=== PATIENT | female | born 1940 | race African-American/Black ===

== ENCOUNTER 2020-02-28 17:42 | Inpatient (IN) | payer MEDICARE ==
[~2020-02-28] VITALS: Ht 160 cm; Wt 78.1 kg
[2020-02-28 17:44] VITALS: BP 111/53
[2020-02-28] MEDS ORDERED: ASA81BEC PO (17:52)
[2020-02-28] MEDS ORDERED: PROTONIX40 M2 PO (17:59)
[2020-02-28] MEDS ORDERED: COZAAR 25 MG TA25 M1 PO (17:59)
[2020-02-28] MEDS ORDERED: CARVEDILOL25 MG PO (17:59)
[2020-02-28] MEDS ORDERED: TYLENOL325 MG PO (18:00)
[2020-02-28] MEDS ORDERED: CRESTOR10 MG PO (18:00)
[2020-02-28] MEDS ORDERED: PROAIR HFA8.5 GM INH (18:00)
[2020-02-28 18:33] LABS: WBC 5.1 thou/uL (4.0-11.0)
[2020-02-28 18:34] LABS: HEMATOCRIT 20.1 % (37.0-47.0); HEMOGLOBIN 6.8 gm/dL (12.0-15.0); MCH 27.7 pg (26.0-34.0); MCHC 31.7 g/dL (28.0-37.0); MCV 87.4 fL (80.0-100.0); RBC 2.33 mil/uL (4.20-5.00); RDW 16.8 % (10.5-14.5)
[2020-02-28 18:46] LABS: APTT 27.7 Seconds (24.5-32.8); INR 1.1; PROTIME 11.2 Seconds (9.3-11.4)
[2020-02-28 19:07] LABS: CALCIUM 8.3 mg/dL (8.5-10.1); CREATININE 4.9 mg/dL (0.6-1.0); POTASSIUM 3.7 mmol/L (3.5-5.1)
[2020-02-28 19:14] LABS: ALBUMIN 2.2 g/dL (3.4-5.0); TOTAL BILIRUBIN 0.6 mg/dL (0.2-1.0); TOTAL PROTEIN 6.1 g/dL (6.4-8.2)
[2020-02-29 05:30] LABS: CALCIUM 8.3 mg/dL (8.5-10.1); CREATININE 5.6 mg/dL (0.6-1.0); POTASSIUM 3.8 mmol/L (3.5-5.1)
[2020-02-29 05:33] LABS: HEMATOCRIT 20.7 % (37.0-47.0); HEMOGLOBIN 6.5 gm/dL (12.0-15.0); MCH 27.7 pg (26.0-34.0); MCHC 31.6 g/dL (28.0-37.0); MCV 87.7 fL (80.0-100.0); RBC 2.36 mil/uL (4.20-5.00); RDW 16.5 % (10.5-14.5); WBC 4.4 thou/uL (4.0-11.0)
--- NOTE | 2020-02-29 09:15 | NUR ---
CONSENT BY TELEPHONE BY AUDREY PARK [phone] FOR INSERTION OF DIALYSIS CATHETER THROUGH INTERVENTIONAL RADIOLOGY
--- NOTE | 2020-02-29 10:40 | NUR ---
DR RODRIGUEZ WISHES TO HAVE DR KEYS IN ID CONSULTED FOR THIS PT
[2020-02-29 10:54] VITALS: BP 127/63
--- NOTE | 2020-02-29 11:53 | NUR ---
80 year old female presenting to the ED from SNF via EMS s/p removing her dialysis catheter. Pt was dialyzed today. 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 The patient resides as [facility]. Pt is AO x 1 at baseline. In the emergency she was found to have a hemoglobin of 6.8. IR has been consulted to replace her hemodialysis catheter. The patient has been admitted to a hospitalist for Anemia, dislodgment of temporary hemodialysis catheter, ESRD, Pneumonia, Chronic hypoxic respiratory failure, HTM, HLD, Dysphagia, Type 2 DM, History of dementia, History of hemorrhagic and embolic stroke, DVT/GI prophylaxis. The patients DPOA and son per records is Zain Kennedy [phone]. Did notify Registration to update face sheet to reflect correct Next of Kin and notification would be the son. Spoke with Zain who had questions on COVID results. Noted mother had been in [place] in January was not positive at that time. Explained results at present and assured the patient will be treated for her anemia and reinsertion of her dialysis catheter along with her Covid results. Explained the role of Case Management and will follow for discharge planning.
[2020-02-29 15:00] VITALS: BP 140/78
--- NOTE | 2020-02-29 18:30 | NUR ---
SPOKE WITH PATIENTS DPOA FOR BLOOD CONSENT
[2020-02-29 18:34] VITALS: BP 116/56; BP 116/59; BP 122/53
[2020-02-29 21:02] VITALS: BP 116/85
--- NOTE | 2020-02-29 21:03 | NUR ---
HANDOFF SENT TO 3W
[2020-02-29 22:01] VITALS: BP 116/85
[2020-02-29 22:37] VITALS: BP 129/47
[2020-03-01 03:57] VITALS: BP 114/66
[2020-03-01 06:06] LABS: HEMATOCRIT 28.2 % (37.0-47.0); MCH 27.9 pg (26.0-34.0); MCHC 31.8 g/dL (28.0-37.0); MCV 87.8 fL (80.0-100.0); RBC 3.21 mil/uL (4.20-5.00); RDW 16.3 % (10.5-14.5); WBC 4.7 thou/uL (4.0-11.0)
[2020-03-01 06:24] LABS: CALCIUM 8.2 mg/dL (8.5-10.1); MAGNESIUM 2.2 mg/dL (1.8-2.4)
[2020-03-01 06:29] LABS: CREATININE 8.1 mg/dL (0.6-1.0)
[2020-03-01 06:44] LABS: ALBUMIN 2.1 g/dL (3.4-5.0); DIRECT BILIRUBIN 0.4 mg/dL (<0.1-0.2); TOTAL BILIRUBIN 0.7 mg/dL (0.2-1.0); TOTAL PROTEIN 6.4 g/dL (6.4-8.2)
[2020-03-01 07:55] VITALS: BP 138/72
--- NOTE | 2020-03-01 08:02 | HC ---
[facility] [place] [address] CONSULTATION Name: BRAD CASIANO Room #: 362-P ADM IN M.R.#: [id number] Admission: 02/28/20 Attend Phys: Vipin Miranda MD Discharge: Date of : 39 Report #: [id number] THIS REPORT FOR: cc: Inocencio Mesa MD, Srinath MD Al-Absi,Charlene Leal MD ~ RENAL CONSULTATION REASON FOR CONSULTATION: End-stage renal disease. REASON FOR PRESENTATION: Dialysis catheter is out. HISTORY OF PRESENT ILLNESS: This is obtained from the medical chart. The patient is not able to provide me with any history. The patient is brought from her nursing facility as she was found to have anemia. On top of that, her IJ catheter has been found lying bedside with no explanation for how that happened. She is in end-stage renal disease, maintained on hemodialysis every Friday, Friday and Friday. She has COVID-19 on arrival. She was admitted for further evaluation and management of her anemia, replacement of her dialysis catheter. PAST MEDICAL HISTORY: Per medical record, 1. Diabetes mellitus. 2. Aphasia. 3. CVA. 4. End-stage renal disease, maintained on hemodialysis. 5. History of coronary artery disease. PAST SURGICAL HISTORY: Unobtainable given the patient's current mental status. SOCIAL HISTORY: Resides in a nursing facility. Other details are not available. FAMILY HISTORY: Unobtainable given the patient's current mental status. [facility] MEDICATIONS: Including the followin. Carvedilol. 2. Losartan. 3. Aspirin. 4. Acetaminophen. 5. Crestor. REVIEW OF SYSTEMS: Completely unobtainable given the patient's current mental status. PHYSICAL EXAMINATION: [facility] [address] [place] [address] CONSULTATION Name: BRAD CASIANO Room #: 362-P ADM IN M.R.#: [id number] Admission: 02/28/20 Attend Phys: Vipin Miranda MD Discharge: Date of : 39 Report #: [id number] VITAL SIGNS: Temperature 36.7, pulse rate 71, respiratory rate 22, blood pressure 114/66. HEAD AND NECK: No jugular venous distention. CHEST: No crackles. CARDIOVASCULAR: Regular with no rub detected. ABDOMEN: Soft, nontender with no hepatosplenomegaly. EXTREMITIES: Lower extremities, no edema. Upper extremities, there is a clotted left-sided AV graft. LABORATORY DATA: Sodium is 139, potassium is 5.0, BUN is 59, creatinine is 8.1. AST is 319, ALT is 137. Chest x-ray was consistent with bilateral pneumonia. ASSESSMENT/IMPRESSION/PLAN: 1. End-stage renal disease. 2. Anemia. 3. Arrangement were made with Interventional Radiology to place a new dialysis catheter. 4. Dialysis today. 5. Treatment of her COVID-19 as per the primary team. 6. ID is following regarding her COVID-19 status. <ELECTRONICALLY SIGNED> By: Charlene Benson MD 03/01/20 0802 [id number] Charlene Benson MD /nt
--- NOTE | 2020-03-01 10:53 | NUR ---
ASSUME CARE 2230 FROM ED. PT STABLE. AO TO SELF, MAKES INCOMPREHENSIBLE SOUNDS, MOANS FREQUENTLY BUT DENIES PAIN WHEN ASKED. PT SEEMS TO FOLLOW COMMANDS MOSTLY BUT IS NON VERBAL. HX OF DEMENTIA NOTED. NO DISTRESS NOTED THROUGH THE NIGHT. SR ON MONITOR. PROGESSING WELL WITH POC. PLAN IS TO CONTINUE WITH DIALYSIS AND CONTNUE TO MONITOR LOC. COVID POSITIVE WELL. WILL CONTINUE TO MONITOR
--- NOTE | 2020-03-01 11:10 | HC ---
[facility] [place] [address] CONSULTATION Name: BRAD CASIANO Room #: 362-P ADM IN M.R.#: [id number] Admission: 02/28/20 Attend Phys: Vipin Miranda MD Discharge: Date of : 39 Report #: [id number] THIS REPORT FOR: cc: Inocencio Mesa MD, Srinath MD Barry, Joseph W. MD ~ DATE OF SERVICE: 02/28/2020 INFECTIOUS DISEASE CONSULTATION ATTENDING PHYSICIAN: Dr. Miranda. REASON FOR EVALUATION: COVID-19 infection, complicated by pneumonitis and respiratory failure as well as encephalopathy. HISTORY OF PRESENT ILLNESS: Chart reviewed, patient examined. This is an 80-year-old woman with end-stage kidney disease, on dialysis. Apparently, has past history of stroke and has been aphasic. The self-catheter had inadvertently come out. Initial evaluation noted profound anemia. Chest x-ray was done, which showed some atelectasis and infiltrates. There is question of atypical pneumonitis. She was tested and was confirmed to have COVID-19 positivity. She is really not particularly responsive at this point, seems to open her eyes. Additional evaluation involved CT of the chest, which showed bilateral patchy infiltrates, small pleural effusions, cardiomegaly, and severe coronary artery calcifications. ProBNP was greater than 70,000. Procalcitonin was elevated to 25.18. She was initially treated empirically with antimicrobials, levofloxacin, Zosyn, and vancomycin and she is maintained on supplemental oxygen 2 liters per nasal cannula. She has not had recorded temperature elevations while here. ALLERGIES: COMPAZINE. CURRENT MEDICATIONS: Include Zosyn, acetaminophen, ondansetron, and received vancomycin and Levaquin as well. PAST MEDICAL HISTORY: Hypertension, known atherosclerotic coronary artery disease with previous acute myocardial infarction, diabetes mellitus, history of stroke with aphasia, end-stage renal disease on dialysis, hyperlipidemia, reflux, dementia, baseline oxygen is currently 2 liters per nasal cannula. FAMILY HISTORY: Unavailable. REVIEW OF SYSTEMS: Not obtainable. PHYSICAL EXAMINATION: [facility] [address] [place] [address] CONSULTATION Name: BRAD CASIANO Room #: 362-P [facility] IN M.R.#: [id number] Admission: 02/28/20 Attend Phys: Vipin Miranda MD Discharge: Date of : 39 Report #: [id number] GENERAL: She appears chronically ill and undernourished. She is in moderate distress. She briefly arouses when her name is called and briefly makes eye contact. VITAL SIGNS: Temperature 98, pulse 68, respirations 23, blood pressure 133/68. SKIN: Warm, dry, no rashes. HEENT: Normocephalic. Extraocular muscles intact. Nasal cannula in place. NECK: Supple. LUNGS: Few scattered coarse breath sounds, rales at the bases, overall diminished. HEART: Regular, soft systolic murmur. ABDOMEN: Soft. She is obese. No apparent peritoneal signs. GENITOURINARY AND RECTAL: Deferred. LABORATORY DATA: MRSA is negative. Procalcitonin elevated at 25.18. ProBNP of greater than 70,000. CT of the chest showed bilateral pleural effusion, patchy infiltrates bilaterally as well. Cardiomegaly. Blood cultures are sterile thus far. Electrolytes: Sodium 137, potassium 3.0, chloride 101, bicarbonate is 24, anion gap of 12, BUN and creatinine 34 and 5.6, glucose of 119. Estimated GFR of 9. CBC: White count of 4.4, H and H 6.5 and 20.7, platelet count of 201. Lactic acid 1.3, down from 2.0 initially. LFTs: AST of 121, ALT of 107, total protein of 6.1, albumin of 2.2. ASSESSMENT: Coronavirus complicated by pneumonitis, respiratory failure. The patient has extensive medical history including end-stage renal disease, on dialysis. Certainly with the elevated procalcitonin and other factors, certainly there is question of a secondary infection. The LFTs are elevated, maybe simply due to sepsis. I think it is reasonable to check an ultrasound. Continue Zosyn, should give us broad-spectrum coverage. We will add treatment for coronavirus as well. Overall, prognosis is quite guarded. <ELECTRONICALLY SIGNED> By: Jason Carrasco MD 03/01/20 1110 [id number] Jason Carrasco MD /nt
--- NOTE | 2020-03-01 14:00 | NUR ---
FAXED CLINICAL UPDATES TO [facility] WITH COVID RESULTS. P [phone]; FAX [phone]
--- NOTE | 2020-03-01 14:26 | NUR ---
INITIAL ASSESSMENT: SW reviewed chart and spoke with nursing and attending physician. Pt was admitted from [facility] due to anemia. Pt placed in Enhanced Isolation due to having positive COVID test. Pt is afebrile and on 2L of O2. Pt is on IV abx and IV steroids. Pt has started course of Remedsivir. Pt is a chronic dialysis pt. DIANA spoke with pt's son, Zain, via phone. Introduced role of SW. Pt has been at [facility] for skilled since 02/08. Pt was at [facility] prior to going to [facility]. Pt had been hospitalized at [facility] from 12/19-01/09. Went to [facility]. Was hospitalized at [facility] from 01/12-01/29. 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 Pt was going to outpatient dialysis at [facility]. Pt's son states that they are not happy with the communication from staff at [facility]. DIANA discussed that options for COVID positive dialysis pts is limited at this time. Zain verbalized understanding and is agreeable with keeping [facility] updated while pt is in the hospital. DIANA spoke with Lizbeth at [facility], who states that pt is using her skilled benefit. [facility] is able to accept her back when discharged. planner chief to fax info to [facility] for review. DIANA is following to assist as needed with discharge planning.
[2020-03-01 15:31] VITALS: BP 129/74
--- NOTE | 2020-03-01 19:19 | NUR ---
RN ASSUMED PT'S CARE AT 0700AM, PT KNOWS HER NAME , PT CAN FOLLOW SOME COMMANDS, BUT PT IS CONFUSED , PT IS CONTINUING IV ABX, PT'S VS AND O2SAT ARE STABLE AT DAY SHIFT, PT NEEDS HELP MEALS AND ADL, PT IS ON DAILYSIS NOW,PT'S R CHEST DAILYSIS CATHETER IS [facility].
[2020-03-01 19:41] VITALS: BP 122/52
[2020-03-02 04:15] VITALS: BP 153/95
[2020-03-02 06:29] LABS: HEMATOCRIT 28.4 % (37.0-47.0); HEMOGLOBIN 9.3 gm/dL (12.0-15.0); MCHC 32.8 g/dL (28.0-37.0); MCV 85.6 fL (80.0-100.0); RBC 3.32 mil/uL (4.20-5.00); RDW 15.8 % (10.5-14.5); WBC 7.6 thou/uL (4.0-11.0)
[2020-03-02 07:16] LABS: CALCIUM 8.2 mg/dL (8.5-10.1); CREATININE 5.1 mg/dL (0.6-1.0)
[2020-03-02 07:17] LABS: ALBUMIN 1.9 g/dL (3.4-5.0); DIRECT BILIRUBIN 0.4 mg/dL (<0.1-0.2); TOTAL BILIRUBIN 0.8 mg/dL (0.2-1.0); TOTAL PROTEIN 6.6 g/dL (6.4-8.2)
[2020-03-02 08:07] LABS: HEPATITIS B SURFACE AG Negative (Negative)
[2020-03-02 10:13] VITALS: BP 117/65
--- NOTE | 2020-03-02 12:00 | NUR ---
PT CARE ASSUMED AT 0700. PT RECEIVING EXTRA SESSION OF DIALYSIS TODAY 1300CC OFF. FEEDER. IV PATENT WITH NO REDNESS OR EDEMA, SALINE LOCKED. ACHS WITH LOW SLIDING SCALE ON BOARD. ON RA. FAMILY UPDATE GIVEN TO SON. 03/23 REMDESIVIR LATER TODAY. PT/OT/ST ON BOARD. NSR ON THE MONITOR. ANURIC. Q2 TURNS. VITALS STABLE. BEDRIDDEN. CALL LIGHT IN REACH. FALL PROTOCOL IN PLACE. WILL CONTINUE TO MONITOR.
[2020-03-02 15:23] VITALS: BP 118/74
[2020-03-02 20:30] VITALS: BP 114/55
[2020-03-03 03:33] VITALS: BP 141/80
[2020-03-03 03:42] VITALS: BP 109/46
[2020-03-03 06:08] LABS: CALCIUM 7.9 mg/dL (8.5-10.1); CREATININE 4.2 mg/dL (0.6-1.0); HEMATOCRIT 28.9 % (37.0-47.0); HEMOGLOBIN 9.4 gm/dL (12.0-15.0); MAGNESIUM 2.2 mg/dL (1.8-2.4); MCH 27.9 pg (26.0-34.0); MCHC 32.4 g/dL (28.0-37.0); POTASSIUM 4.1 mmol/L (3.5-5.1); RBC 3.36 mil/uL (4.20-5.00); RDW 16.3 % (10.5-14.5); WBC 8.7 thou/uL (4.0-11.0)
--- NOTE | 2020-03-03 06:18 | NUR ---
PT MAKING SLOW PROGRESS TOWARDS GOALS. ON ROOM AIR THROUGHOUT THE NIGHT. PT INITIALLY ON RESPONSIVE TO NOXIOUS STIMULI, WOULD WITHDRAW BOTH HANDS FROM PAIN. AT MIDNIGHT PT STATED "HELLO" AND WAS ABLE TO MAKE A FIST WITH BOTH HANDS. THIS AM, PT AGAIN SAID "HELLL" WHEN PROMPTED AND THEN STATED "I'M OK" WHEN PROMPTED. INCONTINENT OF BM X2.
[2020-03-03 06:27] LABS: DIRECT BILIRUBIN 0.4 mg/dL (<0.1-0.2); TOTAL BILIRUBIN 0.7 mg/dL (0.2-1.0)
[2020-03-03 08:02] VITALS: BP 125/63
--- NOTE | 2020-03-03 13:14 | NUR ---
PT CARE ASSUMED AT 0700. PT RESPONDING TO VERBAL COMMANDS. PT HAVING DIALYSIS TODAY. Q2 TUNS. BM ALIA. WHITE SPOTS NOTED ON THE INSIDE OF HER MOUTH. MD INFORMED. PT STABLE ENOUGH TO DC TOMORROW PER MD. IV PATENT WITH NO REDNESS OR EDEMA, SALINE LOCKED. TESSIO IN PLACE UPPER R. CHEST. VITALS STABLE ON ROOM AIR. FALL PROTOCOL IN PLACE. CALL LIGHT IN REACH. WILL CONTINUE TO MONITOR.
--- NOTE | 2020-03-03 14:58 | NUR ---
NOTE PER EMOTIONAL SUPPORT TEACHER: DIANA spoke with nursing and attending physician. Pt remains in Enhanced Isolation. Pt is progressing towards goals for discharge. Pt is having dialysis today. Pt is completing course of Remdesivir. DIANA spoke with Lizbeth in admissions at [facility], who states that they are not able to admit pt back over the weekend due to staffing. Discharge back to [facility] is anticipated for Friday, 03/06. DIANA left voice message for pt's son, Zain, to provide update and notify of discharge plan. DIANA is following to assist as needed with discharge planning. ANDREA Love
[2020-03-03 15:51] VITALS: BP 101/78
[2020-03-03 20:37] VITALS: BP 121/64
[2020-03-04 04:25] VITALS: BP 148/74
--- NOTE | 2020-03-04 04:31 | NUR ---
PT MAKING PROGRESS TOWARDS GOALS. PT STATED "HELLO" WHEN PROMPTED AND "I'M ALRIGHT" WHEN ASKED HOW SHE WAS FEELING. NO FURTHER VERBAL INTERACTION NOTED. CALM AND COOPERATIVE. DID FACE TIME WITH HER SON TEA LAST NIGHT. NO SOA/INCREASED WOB EPISODES NOTED. ON ROOM AIR THROUGHOUT THE NIGHT.
[2020-03-04 07:50] VITALS: BP 138/73
[2020-03-04 09:08] LABS: ALBUMIN 2.2 g/dL (3.4-5.0); CALCIUM 8.5 mg/dL (8.5-10.1); DIRECT BILIRUBIN 0.3 mg/dL (<0.1-0.2); MAGNESIUM 2.6 mg/dL (1.8-2.4); POTASSIUM 3.9 mmol/L (3.5-5.1); TOTAL BILIRUBIN 0.7 mg/dL (0.2-1.0); TOTAL PROTEIN 6.9 g/dL (6.4-8.2)
[2020-03-04 09:09] LABS: CREATININE 6.4 mg/dL (0.6-1.0)
[2020-03-04 11:34] LABS: HEMOGLOBIN 9.2 gm/dL (12.0-15.0); MCH 27.2 pg (26.0-34.0); MCHC 31.7 g/dL (28.0-37.0); MCV 85.8 fL (80.0-100.0); RBC 3.38 mil/uL (4.20-5.00); RDW 15.9 % (10.5-14.5)
[2020-03-04 15:00] VITALS: BP 129/72
[2020-03-04 18:00] VITALS: BP 101/64
--- NOTE | 2020-03-04 19:07 | NUR ---
RN ASSUMED PT'S CARE AT 0700AM, PT KNOWS HER NAME , PT CAN FOLLOW SOME COMMANDS,BUT PT IS CONFUSED AT TIME, PT'S VS ARE STABLE, PT STARTS HER DIALYSIS ABOUT 1530PM, PT IS TOLERATED BY THIS TIME, PT NEEDS HELP MEALS AND ADL.
[2020-03-04 20:40] VITALS: BP 146/67
[2020-03-05 05:04] VITALS: BP 165/94
--- NOTE | 2020-03-05 05:37 | NUR ---
PT MAKING SLOW PROGRESS TOWARDS GOALS. INITIALLY ON O2 AT 2L PER NC VIA FIELD SUPPORT REPRESENTATIVE. ABLE TO TRANSITION OFF OF OXYGEN OVERNIGHT WITH ROOM AIR SATS 93-96%. PT AGAIN WAS ABLE TO SAY "HELLO" AND "I'M OK" WHEN PROMPTED.
[2020-03-05 08:01] VITALS: BP 87/61
[2020-03-05 15:19] VITALS: BP 143/58
--- NOTE | 2020-03-05 18:44 | NUR ---
RN ASSUMED PT'S CARE AT 0700AM, PT KNOWS HER NAME , PT CAN FOLLOW SOME COMMANDS, PT IS CONFUSED AT TIME, PT 'S VS AND O2SAT ARE STABLE, PT IS CONTINUING IV ABX, PT DOES NOT HAVE SOB AND FEVER , PT NEEDS HELP MEALS AND ADL.
[2020-03-05 18:55] VITALS: BP 156/128
[2020-03-06 05:12] VITALS: BP 147/70
--- NOTE | 2020-03-06 05:47 | NUR ---
PT LYING IN BED. CONFUSED. INCONTINENT. NO PAIN. RESTING COMFORTABLY. FREQUENT OBSERVATION.
[2020-03-06 07:56] VITALS: BP 155/92
[2020-03-06] MEDS ORDERED: PREDNISONE 10 M10 M1 PO (12:17)
[2020-03-06] MEDS ORDERED: HUMALOG100 UNIT/1 SUBQ (12:18)
--- NOTE | 2020-03-06 13:17 | NUR ---
CARE ASSUMED AT 0700, ALERT TO SELF, DISORIENTED X4. PT ABLE TO FOLLOW SOME COMMANDS, ON ROOM AIR, NO SIGNS OF DISTRESS. ANTICIPATING FOR DISCHARGE TODAY. WILL CONTINUE TO MONITOR.
--- NOTE | 2020-03-06 15:28 | NUR ---
DISCHARGE NOTE: DIANA reviewed chart and spoke with nursing and attending physician. Pt remains in Enhanced Isolation. Pt is medically stable for discharge back to [facility] today. Pt had dialysis yesterday. Physician requested pt have dialysis at [facility] today. DIANA spoke with Lauren at [facility], who states that pt's regular time is 1030 on . The dialysis clinic is not open on . Pt to have short dialysis today prior to discharge. DIANA faxed finalized discharge orders to [facility] and spoke with Lizbeth to confirm info was received. Amalia arranged stretcher van transportation through [employer] for 1929. DIANA spoke with pt's son, Zain, via phone to provide update and discuss discharge. Zain is aware and agreeable with plan. Chart copy requested. Nursing to call report. No additional SW needs identified at this time, but is available to assist should needs arise. [facility]-- [employer] [facility]--
[2020-03-06 15:30] VITALS: BP 133/62
[2020-03-06 21:13] VITALS: BP 126/61
[2020-03-07 03:54] VITALS: BP 143/67
--- NOTE | 2020-03-07 06:24 | NUR ---
DIALYSIS COMPLETED LAST EVENING. PT ALERT AT TIMES BUT DID NOT SPEAK OR PROVIDE ANY ANSWERS TO ANY QUESTIONS. EYE CONTACT MADE WHEN HER NAME WAS SPOKEN.
[2020-03-07 08:47] VITALS: BP 149/78
--- NOTE | 2020-03-07 09:55 | NUR ---
DISCHARGE NOTE: SW reviewed chart and spoke with nursing and attending physician. Discharge last evening was cancelled due to late dialysis. Pt was not going to be done until around 2100. DIANA contacted Amalia at [facility], who stated that they would not be able to accept pt back that late. Lizbeth rescheduled transportation through [employer] [facility] for 1100 today. SW spoke with [employer] this morning to confirm. SW updated nursing and attending physician. SW left voice message for pt's son, Chi, to provide update and confirm discharge for 1100 today. Nursing to call report. No changes to discharge orders. No additional SW needs identified at this time, but is available to assist should needs arise.
--- NOTE | 2020-03-07 11:02 | NUR ---
REPROT GIVEN TO BENIGNO NURSE AT [facility]
--- NOTE | 2020-03-07 11:05 | NUR ---
TRANSPORTATION HERE TO GET PT, ALL BELONGINGS PACKED AND SENT WITH PT
== END 2020-03-07 11:09 | DRG 177 ==
LOC: ER 17:42 → EROBS 19:56 → 3W 19:56 → EROBS 02-29 15:23 → 3W 02-29 22:01
PROVIDERS: Emergency Medicine; Hospitalist; Nurse Practitioner Family; Specialist; ADMIT Internal Medicine; ATTEND Internal Medicine
PROC: 30233N1 Transfusion of Nonautologous Red Blood Cells into Peripheral Vein, Percutaneous Approach (ICD-10-PCS; principal; 2020-02-29)
PROC: 02HV33Z Insertion of Infusion Device into Superior Vena Cava, Percutaneous Approach (ICD-10-PCS; 2020-02-29)
PROC: B548ZZA Ultrasonography of Superior Vena Cava, Guidance (ICD-10-PCS; 2020-02-29)
PROC: 0JH63XZ Insertion of Tunneled Vascular Access Device into Chest Subcutaneous Tissue and Fascia, Percutaneous Approach (ICD-10-PCS; 2020-02-29)
PROC: XW033E5 Introduction of Remdesivir Anti-infective into Peripheral Vein, Percutaneous Approach, New Technology Group 5 (ICD-10-PCS; 2020-02-29)
PROC: 5A1D70Z Performance of Urinary Filtration, Intermittent, Less than 6 Hours Per Day (ICD-10-PCS; 2020-03-03)
PROC: 5A1D70Z Performance of Urinary Filtration, Intermittent, Less than 6 Hours Per Day (ICD-10-PCS; 2020-03-06)
DX: U07.1 COVID-19 (principal); G92 Toxic encephalopathy; N18.6 End stage renal disease; J12.82 Pneumonia due to coronavirus disease 2019; J15.9 Unspecified bacterial pneumonia; T82.42XA Displacement of vascular dialysis catheter, initial encounter; I12.0 Hypertensive chronic kidney disease with stage 5 chronic kidney disease or end stage renal disease; D62 Acute posthemorrhagic anemia; J96.11 Chronic respiratory failure with hypoxia; Y83.8 Other surgical procedures as the cause of abnormal reaction of the patient, or of later complication, without mention of misadventure at the time of the procedure; E11.22 Type 2 diabetes mellitus with diabetic chronic kidney disease; E78.5 Hyperlipidemia, unspecified; K21.9 Gastro-esophageal reflux disease without esophagitis; F03.90 Unspecified dementia, unspecified severity, without behavioral disturbance, psychotic disturbance, mood disturbance, and anxiety; Z86.73 Personal history of transient ischemic attack (TIA), and cerebral infarction without residual deficits; Z79.82 Long term (current) use of aspirin; Z79.899 Other long term (current) drug therapy; Z88.8 Allergy status to other drugs, medicaments and biological substances; Y92.89 Other specified places as the place of occurrence of the external cause; I25.2 Old myocardial infarction
CPT/HCPCS: 10879; 32100

== ENCOUNTER 2020-09-18 02:39 | Inpatient (IN) | payer MEDICARE ==
[~2020-09-18] VITALS: Ht 172.7 cm; Wt 90.7 kg
--- NOTE | ~2020-09-18 | EMS ---
[address] [address] EMS Patient Care Report Name: BRAD CASIANO Room #: 461-P ADM IN M.R.#: [id number] Admission: 09/18/20 Attend Phys: Loni Fernández MD Discharge: Date of : 39 Report #: [id number] THIS REPORT FOR: //name// Report Transmitted: 09/19/2020 15:11 EMS Care Summary [employer], [place]/[facility] Incident [id number] @ 09/18/2020 01:56 Incident Location [id number] [place] [address] 616 Patient BRAD CASIANO Female, 80 Years 1940 Patient Address [address] [place], [place] [id number] Patient History Diabetes,Stroke/CVA,End Stage Renal Disease (ESRD),Myocardial Infarction (MS), Patient Allergies Compazine, Patient Medications Humalog, Rosuvastatin, Norvasc, Carvedilol, Albuterol, Renvela, Losartan, Lantus, Protonix, Chief Complaint Respiratory distress Disposition Transported No Lights/[place] Dispatch Reason Sick Person Transported To [facility] Narrative Arrived on scene to meet P28 with the patient. P28 had placed a a NRB at 15lpm on the patient prior to our arrival stating the patient had an SPO2 of 60% on [address] [address] EMS Patient Care Report Name: BRAD CASIANO Room #: 461-P [facility] IN .R.#: [id number] Admission: 09/18/20 Attend Phys: Loni Fernández MD Discharge: Date of : 39 Report #: [id number] room air. group home staff were not reliable historians, stating they did not know if the patient had any history of breathing problems and did not know when the patient was last seen well. Upon patient contact she was 97% SPO2 on the 15lpm NRB. Patient had audible wheezes without auscultation, auscultation revealed inspiratory and expiratory wheezes. Albuterol nebulizer started. Due to the severity of the patient respiratory distress she was unable to adequately inhale the nebulizer treatment. Patient placed on CPAP to aid in getting the medication into her airway. CPAP was effective with a second dose of albuterol in opening the patient's lower airways and subsiding the wheezing. After patient removed from CPAP on cessation of the wheezes. Patient placed on nasal cannula for transport to receiving facility. Patient transferred to receiving facility without change in patient condition. Initial Vitals @02:20P: 92,CO: 0,SpO2: 95, @PTAR: 30,SpO2: 60, @02:28P: 91,R: 20,BP: 163/80,GCS: 15,CO: 9,SpO2: 92,Revised Trauma: 12, @02:09P: 88,R: 30,BP: 179/89,GCS: 15,SpO2: 95,Revised Trauma: 11, @02:22P: 88,R: 22,BP: 172/86,GCS: 15,CO: 5,SpO2: 91,Revised Trauma: 12, Assessments @02:08MENTAL:Person Oriented,Event Oriented,Place Oriented,SKIN:Diaphoresis,HEENT:Head/Face: No Abnormalities,LUNG SOUNDS:ABDOMEN:PELVIS//GI:No Abnormalities,EXTREMITIES:Left Arm: No Abnormalities,Right Arm: No Abnormalities,Left Leg: No Abnormalities,Right Leg: No Abnormalities,PULSE:NEURO:Slurred Speech,@02:25MENTAL:SKIN:HEENT:LUNG SOUNDS:ABDOMEN:PELVIS//GI:EXTREMITIES:PULSE:NEURO: Impression Acute Respiratory Distress (Dyspnea) Procedures @02:08ALS AssessmentResponse: UnchangedSucceeded@02:09Albuterol - 2.5 Milligrams (mg) - NebulizedResponse: Improved@02:24Saline Lock cc (22 ga) Site: Forearm-LeftResponse: UnchangedFailed@02:16Albuterol - 2.5 Milligrams (mg) - NebulizedResponse: Improved@PTAOxygen FlowRate: 15 Device: Non Re-breather Mask (NRB) Response: Improved@02:30Oxygen FlowRate: 4 Device: Nasal Cannula (NC) Response: ImprovedSucceeded@02:12CPAP FlowRate: 10 Response: ImprovedSucceeded@02:093-Lead ECGResponse: UnchangedSucceeded Timeline REEL STRIPPER,Oxygen FlowRate: 15 Device: Non Re-breather Mask (NRB) Response: Improved REEL STRIPPER,BP: / M,PULSE: ,RR: 30 R,SPO2: 60 Ox,ETCO2: ,BG: ,PAIN: ,GCS: , 01:55,Call Received 01:55,Dispatch Notified [facility] [address] [place] [address] EMS Patient Care Report Name: BRAD CASIANO Room #: 461-P ADM IN M.R.#: [id number] Admission: 09/18/20 Attend Phys: Loni Fernández MD Discharge: Date of : 38 Report #: [id number] 01:56,Dispatched 01:58,En Route 02:05,On Scene 02:08,At Patient 02:08,ALS Assessment,Response: UnchangedSucceeded, 02:09,Albuterol - 2.5 Milligrams (mg) - Nebulized,Response: Improved 02:09,3-Lead ECG,Response: UnchangedSucceeded, 02:09,BP: 179/89 M,PULSE: 88,RR: 30 R,SPO2: 95 Ox,ETCO2: ,BG: ,PAIN: ,GCS: 15, 02:12,CPAP FlowRate: 10 Response: ImprovedSucceeded, 02:16,Albuterol - 2.5 Milligrams (mg) - Nebulized,Response: Improved 02:20,BP: / M,PULSE: 92,RR: R,SPO2: 95 Ox,ETCO2: ,BG: ,PAIN: ,GCS: , 02:22,BP: 172/86 M,PULSE: 88,RR: 22 R,SPO2: 91 Ox,ETCO2: ,BG: ,PAIN: ,GCS: 15, 02:24,Saline Lock cc 22 ga Site: Forearm-Left,Response: UnchangedFailed, 02:28,Depart Scene 02:28,BP: 163/80 M,PULSE: 91,RR: 20 R,SPO2: 92 Ox,ETCO2: ,BG: ,PAIN: ,GCS: 15, 02:30,Oxygen FlowRate: 4 Device: Nasal Cannula (NC) Response: ImprovedSucceeded, 02:41,At Destination 02:52,Call Closed Disclaimer v1.1 Copyright 2020 [employer] This EMS Care Summary contains data elements from the applicable legal record (which may be displayed differently). It is designed to provide pertinent information for the following purposes: continuity of care, clinical quality, and state data reporting. The complete legal record is available to ED staff and administrators of the receiving hospital in [facility]s Patient Tracker. All data is provided "as is."
--- NOTE | ~2020-09-18 | HC ---
[facility] [place] [address] CONSULTATION Name: BRAD CASIANO Room #: 461-P ADM IN M.R.#: [id number] Admission: 09/18/20 Attend Phys: Loni Fernández MD Discharge: Date of : 39 Report #: [id number] THIS REPORT FOR: cc: Inocencio Mesa MD, Srinath MD Al-Absi,Charlene Leal MD ~ DATE OF SERVICE: 09/19/2020 REASON FOR CONSULTATION: End-stage renal disease. REASON FOR PRESENTATION: Sent from her nursing facility. HISTORY OF PRESENT ILLNESS: No details are available, so I am unable to obtain much details from the patient, she has mental status issues. She was found hypoxic in her nursing facility and was sent to our facility for further evaluation and management. She is in end-stage renal disease requiring hemodialysis, hence the Nephrology consultation. I evaluated this patient back in February when she was afflicted with COVID-19 infection. Per the daughter, informations were relayed through her hospital staff that the patient recovered completely from that event. She is due to have a dialysis. PAST MEDICAL HISTORY: 1. End-stage renal disease, maintained on hemodialysis. 2. History of CVA. 3. Hypertension. 4. Hyperlipidemia. 5. Diabetes mellitus. 6. COVID-19 infection. ALLERGIES: None. MEDICATIONS: Reported [facility] medications. 1. Carvedilol. 2. Losartan. 3. Crestor. 4. Amlodipine. 5. Renvela. SOCIAL HISTORY: Resides in a nursing facility. No other details available. REVIEW OF SYSTEMS: Unobtainable given the patient's current mental status. PHYSICAL EXAMINATION: VITAL SIGNS: Blood pressure is 180/66, pulse rate is 80. GENERAL: She is confused. HEAD AND NECK: No jugular venous distention. [facility] [address] [place] [address] CONSULTATION Name: BRAD CASIANO Room #: 461-P [facility] IN [facility].#: [id number] Admission: 09/18/20 Attend Phys: Loni Fernández MD Discharge: Date of : 39 Report #: [id number] CHEST: Decreased air entry bilaterally with crackles. CARDIOVASCULAR: No rub detected. ABDOMEN: Soft, nontender. LOWER EXTREMITIES: No edema. LABORATORY VALUES: From yesterday: White blood cell count 26.3, hemoglobin is 8.7. Sodium is 134, potassium is 4.4. BUN is 54, creatinine 7.1. COVID-19 is negative. Chest x-ray consistent with mild pulmonary vascular congestions. ASSESSMENT AND PLAN: 1. End-stage renal disease. 2. Fluid overload. 3. Hemodialysis will be arranged for the patient today. She is stable to discharge from my side after dialysis if there are no other pressing medical issues. By: [id number] Charlene Benson MD /nt
[~2020-09-18 02:39] MED LIST: ASA81BEC PO; CARVEDILOL25 MG PO; COZAAR 25 MG TA25 M1 PO; CRESTOR10 MG PO; HUMALOG100 UNIT/1 SUBQ; PREDNISONE 10 M10 M1 PO; PROAIR HFA8.5 GM INH; PROTONIX40 M2 PO; TYLENOL325 MG PO
[2020-09-18 02:53] VITALS: BP 195/78
[2020-09-18 03:23] LABS: HEMATOCRIT 27.6 % (37.0-47.0); HEMOGLOBIN 8.7 gm/dL (12.0-15.0); MCH 25.3 pg (26.0-34.0); MCHC 31.6 g/dL (28.0-37.0); MCV 80.1 fL (80.0-100.0); PLATELET COUNT 270 thou/uL (150-400); RBC 3.45 mil/uL (4.20-5.00); RDW 17.9 % (10.5-14.5); WBC 26.3 thou/uL (4.0-11.0)
[2020-09-18 03:31] LABS: ANION GAP 10 mmol/L (7-16); BUN 54 mg/dL (7-18); CALCIUM 9.3 mg/dL (8.5-10.1); CHLORIDE 97 mmol/L (98-107); CO2 27 mmol/L (21-32); CREATININE 7.1 mg/dL (0.6-1.0); GLUCOSE 159 mg/dL (74-106); POTASSIUM 4.4 mmol/L (3.5-5.1); SODIUM 134 mmol/L (136-145)
[2020-09-18 03:41] LABS: SGOT 19 U/L (15-37); SGPT 27 U/L (14-59); TOTAL BILIRUBIN 0.5 mg/dL (0.2-1.0); TROPONIN-I <0.06 ng/mL (<0.06)
[2020-09-18 03:43] LABS: URINE BILIRUBIN NEGATIVE (Negative); URINE BLOOD TRACE (Negative); URINE CLARITY SL CLOUDY; URINE COLOR YELLOW; URINE GLUCOSE-RANDOM* NEGATIVE (Negative); URINE KETONES NEGATIVE (Negative); URINE NITRITE-REFLEX NEGATIVE (Negative); URINE PROTEIN (DIPSTICK) 2+ (Negative); URINE SPECIFIC GRAVITY 1.015 (1.005-1.035); URINE UROBILINOGEN 0.2 E.U./dl (0.2-1.0)
[2020-09-18 03:52] LABS: URINE LEUKOCYTES-REFLEX 2+ (Negative)
[2020-09-18 03:57] LABS: BACTERIA-REFLEX >30 Many /HPF (None Seen); HYALINE CASTS 0-3 Few /LPF (None Seen); MUCUS 0-3 Light strn/LPF (None Seen); SQUAMOUS 0-3 Few /LPF (0-3)
[2020-09-18 03:58] LABS: CRYSTALS None Seen /LPF (None Seen); URINE RBC 3-10 Few /HPF (NONE SEEN); URINE WBC-REFLEX >25 Many /HPF (0-5); WBC CLUMPS Few (None Seen)
[2020-09-18] MEDS ORDERED: LANTUS SUBQ (04:08)
[2020-09-18] MEDS ORDERED: HUMALOG100 UNIT/1 SUBQ (04:09)
[2020-09-18] MEDS ORDERED: NORVASC10 MG PO (04:10)
[2020-09-18] MEDS ORDERED: RENVELA800 MG PO (04:15)
[2020-09-18 04:23] LABS: ABSOLUTE NEUTROPHILS 23.1 thou/uL (1.4-8.2); ANISOCYTOSIS 1+
[2020-09-18 06:02] VITALS: BP 153/86
--- NOTE | 2020-09-18 06:19 | NUR ---
PT WAITING FOR INPATIENT BED. RESTING QUIETLY IN BED AT THIS TIME. VSS. AFEBRILE. SPO2> 92% ON 3-4LNC. AWAKE AND ALERT. EXPRESSIVE APHASIA NOTED.
--- NOTE | 2020-09-18 07:31 | EKG ---
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 : 1940 Requested By: Alban Perry Order Number: [id number] MD: Anuel Knox Measurements Intervals [place] Rate: 81 P: 73 WV: 214 QRS: -13 QRSD: 92 T: 97 QT: 407 QTc: 473 Interpretive Statements Sinus rhythm Atrial premature complexes Borderline prolonged WV interval Probable left atrial enlargement Repol abnrm suggests ischemia, lateral leads No previous ECG available for comparison Electronically Signed On 09-18-2020 7:30:59 CDT by Anuel Knox [email or web address] <ELECTRONICALLY SIGNED> By: Anuel Knox MD, [facility] 09/18/20 [phone] Anuel Knox MD, FAC /EPI
--- NOTE | 2020-09-18 17:57 | NUR ---
NO DINNER TRAY CAME UP, REQUESTED [facility] CALL DIETARY SERVICES TO INQUIRE ABOUT TRAY.
[2020-09-19 06:59] VITALS: BP 180/66
--- NOTE | 2020-09-19 07:17 | NUR ---
TOOK OVER CARE FROM ANA GRAHAM AT THIS TIME
[2020-09-19 07:25] VITALS: BP 180/66
[2020-09-19 07:33] VITALS: BP 169/82
[2020-09-19 08:17] LABS: HEMOGLOBIN 7.4 gm/dL (12.0-15.0); MCH 25.6 pg (26.0-34.0); MCHC 32.3 g/dL (28.0-37.0); MCV 79.4 fL (80.0-100.0); RBC 2.9 mil/uL (4.20-5.00); RDW 17.2 % (10.5-14.5); WBC 13.7 thou/uL (4.0-11.0)
[2020-09-19 08:31] LABS: CALCIUM 9.5 mg/dL (8.5-10.1); POTASSIUM 4.7 mmol/L (3.5-5.1)
[2020-09-19 08:42] LABS: CREATININE 8.3 mg/dL (0.6-1.0)
--- NOTE | 2020-09-19 10:18 | NUR ---
PT IS A&O*2, 3L OXYGEN, NSR ON TELE. RED REST, NEED BE TURNED Q2. NO PAIN REPORT AT THIS TIME. SCD APPLIED. FAMILY - SON CONTACTED FOR UPDATE. BLOOD GLUCOSE WAS LOW 44 AFTER ARRIVED THE FLOOR, 8 OZ ORGANGE JUICE GIVEN AND RECHECK IN AN HOUR, BG WAS 111. PT IS ON BED ALARM AND CLOSE TO NURSING STATION. WILL KEEP MONITOR PT'S SAFETY.
[2020-09-19 16:26] VITALS: BP 138/82
[2020-09-19 19:28] VITALS: BP 132/80
[2020-09-20 03:15] LABS: HEMATOCRIT 22.6 % (37.0-47.0); HEMOGLOBIN 7.6 gm/dL (12.0-15.0); MCH 26.8 pg (26.0-34.0); MCHC 33.5 g/dL (28.0-37.0); RBC 2.83 mil/uL (4.20-5.00); RDW 17.5 % (10.5-14.5); WBC 9.6 thou/uL (4.0-11.0)
[2020-09-20 03:24] LABS: CALCIUM 8.9 mg/dL (8.5-10.1); POTASSIUM 4.2 mmol/L (3.5-5.1)
[2020-09-20 03:44] VITALS: BP 146/88
[2020-09-20 03:45] LABS: CREATININE 4.9 mg/dL (0.6-1.0)
--- NOTE | 2020-09-20 05:41 | NUR ---
Assumed pt care at 1900. A/OX3,confused but able to make needs known. C/o right shoulder pain,medicated with Tylenol with relief reported. VSS. Dialyzed on 09/19,has a right chest port and a fistula on LUE. Anuric. Fall precautions in place. Frequent checks on pt. SR on telemetry.
[2020-09-20 07:30] VITALS: BP 147/61
[2020-09-20 10:08] LABS: HEP B SURFACE Ab(ANTI-HBS Reactive (()); HEPATITIS B SURFACE AG Negative (Negative)
--- NOTE | 2020-09-20 15:16 | NUR ---
PT IS A&O*2, ROOM AIR, NSR ON TELE, Q2 TURN. PT REPORT MILD RIGHT SHOULDER PAIN BUT REFUSE PAIN MEDICATION AT THIS TIME. HEMODIALYSIS IS ORDER DAY AND MIGHT BE DC BACK TO [place] AFTER DIALYSIS FINISH TODAY. SON CAME BY AND VISIT PT TODAY AND SIGNED FOR ADSSIMISSION PAPERS. PT IS ON BED ALARM AND CLOSE TO NURSING STATION. WILL KEEP MONITOR PT'S SAFETY UNTIL SHIFT CHANGE.
[2020-09-20 15:46] VITALS: BP 156/71
--- NOTE | 2020-09-20 16:23 | NUR ---
PT ADMITTED RELATED TO UTI. CM REVIEWED CHART AND SPOKE WITH CARE TEAM. CM CALLED AND SPOKE WIHT PT'S SON. HE CONFIRMED THAT PT RESIDES IN LTC AT [facility]. HE CONFIRMED THAT PT GOES TO [facility] 10:30 CHAIR TIME. HE INDICATED THAT PLAN WOULD BE FOR PT TO DC BACK TO [place] ONCE MEDICALLY STABLE. CM CALLED AND SPOKE WITH KETURAH AT FACILITY AND SHE CONFIRMED THAT ABOVE. SHE INDICATED THAT THEY ARE ABLE TO ACCEPT PT BACK ONCE MEDICALLY STABLE. CARE TEAM INDICATED PT IS MEDICALLY STABLE TO DC TODAY AFTER DIALYSIS. PT STARTED AT 2:30 AND RUNS FOR 3 HRS. CM ARRANGED ST[facility]ER [facility] BETWEEN [phone]. CHART COPY MADE. ORDERS FAXED. NURSE GIVEN FRAN FOR REPORT. NO OTHER CM INTERVENTION INDICATED. CASE CLOSED.
[2020-09-20] MEDS ORDERED: CEPHALEXIN 250250 M1 PO (16:47)
[2020-09-20 18:34] VITALS: BP 147/72
== END 2020-09-20 18:49 | DRG 871 ==
LOC: ER 02:39 → 4W 04:21 → EROBS 04:21 → 4W 09-19 07:38
PROVIDERS: Hospitalist; Nurse Practitioner Family; Student in an Organized Health Care Education/Training Program; ADMIT Hospitalist; ATTEND Hospitalist
PROC: 5A1D70Z Performance of Urinary Filtration, Intermittent, Less than 6 Hours Per Day (ICD-10-PCS; principal; 2020-09-19)
PROC: 5A1D70Z Performance of Urinary Filtration, Intermittent, Less than 6 Hours Per Day (ICD-10-PCS; 2020-09-20)
DX: A41.51 Sepsis due to Escherichia coli [E. coli] (principal); N18.6 End stage renal disease; G93.41 Metabolic encephalopathy; N30.01 Acute cystitis with hematuria; I12.0 Hypertensive chronic kidney disease with stage 5 chronic kidney disease or end stage renal disease; Z20.822 Contact with and (suspected) exposure to COVID-19; E11.22 Type 2 diabetes mellitus with diabetic chronic kidney disease; E78.5 Hyperlipidemia, unspecified; E87.70 Fluid overload, unspecified; I25.10 Atherosclerotic heart disease of native coronary artery without angina pectoris; Z79.82 Long term (current) use of aspirin; I25.2 Old myocardial infarction; Z88.8 Allergy status to other drugs, medicaments and biological substances; I69.320 Aphasia following cerebral infarction; Z79.899 Other long term (current) drug therapy
CPT/HCPCS: 10045; 32100

== ENCOUNTER 2021-01-26 07:06 | Inpatient (IN) | payer MEDICARE ==
[2021-01-26] VITALS (7 sets, daily range): BP systolic 118–159; BP diastolic 58–108
[~2021-01-26] VITALS: Ht 152.4 cm; Wt 73.0 kg
--- NOTE | ~2021-01-26 | EMS ---
[facility] [address] [place] [address] EMS Patient Care Report Name: BRAD CASIANO Room #: REG COLLETTE Blackman#: [id number] Admission: 01/26/21 Attend Phys: Discharge: Date of : 39 Report #: [id number] THIS REPORT FOR: //name// Report Transmitted: 01/26/2021 06:57 EMS Care Summary [place], [place]/[facility] Incident [id number] @ 01/26/2021 06:24 Incident [id number] [place] [address] [address] Patient BRAD CASIANO Female, 80 Years 1940 Patient Address [id number] [place] [address] [address] [place] [address] Patient History Diabetes,Stroke/CVA,End Stage Renal Disease (ESRD),Cardiac Condition - Other, Chief Complaint altered mental status/decline Disposition Transported No Lights/[place] Dispatch Reason Sick Person Transported To [facility] Narrative pt found seated in wheelchair, NAD, alert, non verbal. staff reports pt decline over several days. she normally is alert and verbal, able to talk. for past few days she has not been eating well and today she only grunts and will not even answer "yes" and "no" questions. she has been given her normal insulin but will not eat this morning at all. she is due to go to dialysis today and has not missed any appointments. pt lifted to cot, VS, tx as listed in flow chart. no changes during transport. JESSA closed- [facility], report given on [facility] [address] [place] [address] EMS Patient Care Report Name: BRAD CASIANO Room #: REG COLLETTE Blackman#: [id number] Admission: 01/26/21 Attend Phys: Discharge: Date of : 39 Report #: [id number] arrival Rm11 Initial Vitals @06:50P: 95,R: 18,BP: 104/60,GCS: 11,Glucose: 155,SpO2: 98,Revised Trauma: 11, @06:34P: 90,R: 18,BP: 86/50,GCS: 11,SpO2: 98,Revised Trauma: 10, Assessments @06:32MENTAL:Other,SKIN:No Abnormalities,HEENT:Head/Face: No Abnormalities,LUNG SOUNDS:ABDOMEN:PELVIS//GI:EXTREMITIES:Left Arm: Other,PULSE:NEURO: Impression Altered Mental Status Procedures @06:32 ALS Assessment Response: Unchanged @06:45 3-Lead ECG Response: Unchanged @06:38 Stretcher Response: Unchanged @06:51 IV Therapy - Saline Lock 10cc (20 ga) Site: Hand-Right Response: UnchangedSucceeded Timeline 06:22,Call Received 06:22,Dispatch Notified 06:24,Dispatched 06:24,En Route 06:30,On Scene 06:32,At Patient 06:32,ALS Assessment,Response: Unchanged 06:34,BP: 86/50 M,PULSE: 90,RR: 18 R,SPO2: 98 Ox,ETCO2: ,BG: ,PAIN: ,GCS: 11, 06:38,Stretcher,Response: Unchanged 06:45,3-Lead ECG,Response: Unchanged 06:50,BP: 104/60 M,PULSE: 95,RR: 18 R,SPO2: 98 Ox,ETCO2: ,B,PAIN: ,GCS: 11, 06:51,IV Therapy - Saline Lock 10cc 20 ga Site: Hand-Right,Response: UnchangedSucceeded, 06:52,Depart Scene 07:18,At Destination 07:19,Call Closed Disclaimer v1.1 Copyright 2020 [employer] This EMS Care Summary contains data elements from the applicable legal record (which may be displayed differently). It is designed to provide pertinent information for the following purposes: continuity of care, clinical quality, and state data reporting. The complete legal record is available [place] [address] EMS Patient Care Report Name: CASIANOBRAD Room #: PETER Blackman#: [id number] Admission: 01/26/21 Attend Phys: Discharge: Date of : 39 Report #: [id number] and administrators of the receiving hospital in [employer]'s Patient Tracker. All data is provided "as is."
[~2021-01-26 07:06] MED LIST changes: +CEPHALEXIN 250250 M1 PO; +LANTUS SUBQ; +NORVASC10 MG PO; +RENVELA800 MG PO
--- NOTE | 2021-01-26 08:08 | NUR ---
Pt gone to radiology at this time
[2021-01-26 08:10] LABS: HEMATOCRIT 39.8 % (37.0-47.0); HEMOGLOBIN 12.4 gm/dL (12.0-15.0); MCH 23.5 pg (26.0-34.0); MCHC 31.3 g/dL (28.0-37.0); MCV 75.1 fL (80.0-100.0); RBC 5.3 mil/uL (4.20-5.00); RDW 19.5 % (10.5-14.5)
[2021-01-26 08:22] LABS: ANION GAP 17 mmol/L (7-16); BUN 53 mg/dL (7-18); CALCIUM 9.6 mg/dL (8.5-10.1); CHLORIDE 96 mmol/L (98-107); CO2 23 mmol/L (21-32); CREATININE 8.4 mg/dL (0.6-1.0); GLUCOSE 157 mg/dL (74-106); POTASSIUM 4.8 mmol/L (3.5-5.1); SODIUM 136 mmol/L (136-145)
[2021-01-26 08:33] LABS: ALBUMIN 2.5 g/dL (3.4-5.0); MAGNESIUM 2.2 mg/dL (1.8-2.4); PHOSPHORUS 3.8 mg/dL (2.6-4.7); SALICYLATE < 2.8 mg/dL (2.8-20.0); SGOT 230 U/L (15-37); SGPT 231 U/L (14-59); TOTAL BILIRUBIN 0.8 mg/dL (0.2-1.0); TOTAL PROTEIN 7.4 g/dL (6.4-8.2)
--- NOTE | 2021-01-26 09:03 | EKG ---
[place] [address] [address] [facility] [place] [address] ELECTROCARDIOGRAM REPORT Name: BRAD CASIANO Room #: REG COLLETTE Blackman#: [id number] Admission: 01/26/21 Attend Phys: Discharge: Date of : 39 Report #: [id number] [facility] ED Test Date: 2021-01-26 Test Time: 08:51:57 Pat Name: BRAD CASIANO Department: Room: Gender: F Geospatial Analyst: HUMA : 1940 Requested By: Evelio Roe Order Number: [id number] MD: Ayush Dumont Measurements Intervals Pollard Rate: 94 P: 56 TN: 188 QRS: -19 QRSD: 96 T: 82 QT: 350 QTc: 438 Interpretive Statements Sinus rhythm Leftward axis Poor R wave progression Compared to ECG 09/18/2020 02:46:16 Atrial premature complex(es) no longer present Electronically Signed On 01-26-2021 9:03:22 FURNITURE REPRODUCER by Ayush Dumont [email or web address] <ELECTRONICALLY SIGNED> By: Ayush Dumont MD, [facility] 01/26/21902 [id number] Ayush Dumont MD, FACC /EPI
[2021-01-26 09:33] LABS: URINE BLOOD 2+ (Negative); URINE CLARITY CLOUDY; URINE COLOR YELLOW; URINE GLUCOSE-RANDOM* TRACE (Negative); URINE KETONES NEGATIVE (Negative); URINE LEUKOCYTES-REFLEX TRACE (Negative); URINE NITRITE-REFLEX NEGATIVE (Negative); URINE PROTEIN (DIPSTICK) 2+ (Negative)
[2021-01-26 09:50] LABS: ICTOTEST (BILI CONFIRMATORY) Negative (Negative); URINE BILIRUBIN NEGATIVE (Negative)
[2021-01-26 09:51] LABS: CASTS None Seen /LPF (None Seen); SQUAMOUS >10 Many /LPF (0-3)
[2021-01-26 09:53] LABS: BACTERIA-REFLEX 1-9 Few /HPF (None Seen); CRYSTALS None Seen /LPF (None Seen); URINE RBC 1-2 Rare /HPF (NONE SEEN); URINE WBC-REFLEX 0-5 Rare /HPF (0-5)
[2021-01-26 09:55] LABS: AMP/METHAMP Negative (Negative); BARBITURATES Negative (Negative); BENZODIAZEPINES Negative (Negative); COCAINE Negative (Negative); METHADONE Negative (Negative); OPIATES Negative (Negative); PCP Negative (Negative)
[2021-01-26] MEDS ORDERED: CALCIUM ACETAT667 MG PO (10:00)
[2021-01-26] MEDS ORDERED: LEVEMIR FL100 UNIT/2 SUBQ (10:03)
[2021-01-26] MEDS ORDERED: NOVOLOG100 UNIT/1 SUBQ (10:04)
[2021-01-26] MEDS ORDERED: PRO-STAT LIQUID30 M1 PO (10:05)
--- NOTE | 2021-01-27 00:31 | NUR ---
ADMIT PT ADMITTED TO ROOM 358 FROM ED. BEING ADMITTED WITH SEPSIS AND AMS. PT IS A [place] RESIDENT AND STAFF NOTED SHE HAD INCREASING AMS. HAS ESRD AND HAD NO DIALYSIS FOR 3 DAYS. HAS A LEFT UPPER ARM FISTULA THAT NO LONGER WORKS AND A TEMPORARY RIGHT CHEST DIALYSIS CATHETER. PT LETHARGIC AND APHASIC. BUT AWAKENS WITH VERBAL STIMULI. PT MOANING AND RESTLESS ON INITIAL ASSESSMENT, REPOSITIONED AND OFFLOADED WITH PILLOWS PT SETTLED AND WENT TO SLEEP. VSS, ON ROOM AIR ACCUCHECKS ACHS WITH SSI AND LANTUS AT BEDTIME. ADMISSION ASSESSMENT AND HISTORY COMPLETED. SON AT BEDSIDE AND POC DISCUSSED WITH HIM. DIALYSIS NURSE CALLED AND STATED SHE WILL HAVE DIALYSIS IN THE AM. IV ANTIBIOTICS ADMINISTERED ORDERED. TELEMETRY INTACT READING ST WITH RATES IN 90'S TO LOW 100'S.
[2021-01-27 05:00] VITALS: BP 103/48
[2021-01-27 05:16] LABS: ABSOLUTE NEUTROPHILS 13.5 thou/uL (1.4-8.2); BASOPHILS 0.3 % (0.0-2.0); CALCIUM 9.1 mg/dL (8.5-10.1); HEMATOCRIT 32.8 % (37.0-47.0); MAGNESIUM 2.1 mg/dL (1.8-2.4); MCH 23.5 pg (26.0-34.0); MCHC 31.3 g/dL (28.0-37.0); MCV 74.9 fL (80.0-100.0); MONOCYTES 12.9 % (1.0-8.0); PHOSPHORUS 3.5 mg/dL (2.6-4.7); PLATELET COUNT 189 thou/uL (150-400); POLYS 83.8 % (36.0-66.0); POTASSIUM 4.4 mmol/L (3.5-5.1); RBC 4.38 mil/uL (4.20-5.00); RDW 19.6 % (10.5-14.5); WBC 16.1 thou/uL (4.0-11.0)
[2021-01-27 05:19] LABS: HEMOGLOBIN 10.3 gm/dL (12.0-15.0)
[2021-01-27 05:20] LABS: CREATININE 9.5 mg/dL (0.6-1.0)
[2021-01-27 07:27] VITALS: BP 126/62
[2021-01-27 15:25] VITALS: BP 144/72
--- NOTE | 2021-01-27 16:17 | NUR ---
PATIENT ASSESMENTS CHARTED. PATIENT HAD DIALYSIS DONE AT THE BEDSIDE WITH 1L TAKEN OFF. DIALYSIS LINE WAS LATER PULLED AND CULTURED BY SURGICAL TEAM WITH PLAN TO REPLACE IT IT LOOKS LIKE SOURCE OF INFECTION. LOW BLOOD SUGARS ALL DAY - KARU NOTIFIED. NO INSULIN CHANGES MADE.
[2021-01-27 19:31] VITALS: BP 144/71
[2021-01-28 04:28] VITALS: BP 153/84
[2021-01-28 07:13] VITALS: BP 175/87
--- NOTE | 2021-01-28 07:47 | NUR ---
PROGRESS PT ALERT BUT NON-VERBAL FOLLOWS COMMANDS. VSS. IV SL. DIALYSIS CATH SITE WITH DRSG C/D/I. REPOSITIONED NEEDED. DRANK THIN LIQUIDS WITH ASSIST TOLERATING RENAL DIET CONTINUE POC.
[2021-01-28 15:54] VITALS: BP 134/67
--- NOTE | 2021-01-28 16:25 | HC ---
[facility] [place] [address] CONSULTATION Name: BRAD CASIANO Room #: 358-P ADM IN M.R.#: [id number] Admission: 01/26/21 Attend Phys: José Miguel Hernandez MD Discharge: Date of : 39 Report #: [id number] THIS REPORT FOR: cc: Inocencio Mesa MD, Srinath MD [place],Eddie Chicas MD ~ DATE OF SERVICE: 01/27/2021 WOUND CARE CONSULTATION NOTE REASON FOR CONSULTATION: Sacral gluteal pressure sores. HISTORY OF PRESENT ILLNESS: The patient is an 80-year-old woman with end-stage renal disease, on hemodialysis, admitted to [facility] with leukocytosis and suspected line sepsis. General Surgery has been consulted for line change. I am consulted for a sacral gluteal pressure ulcers. She has a history of cerebrovascular accident, diabetes, end-stage renal disease with hemodialysis. PAST MEDICAL HISTORY: Diabetes mellitus type 2, coronary artery disease, end-stage renal disease with hemodialysis, status post cerebrovascular accident with aphasia, hypertension, line sepsis, severe protein calorie malnutrition, albumin 2.0-2.5, leukocytosis. LABORATORY DATA: White blood count 24,000. Albumin 2.0, then 2.5. PHYSICAL EXAMINATION: GENERAL: Shows chronically ill-appearing 80-year-old woman who is alert and active. She is receiving hemodialysis through a chest catheter. HEENT: Mucous membranes are moist. NECK: Supple. ABDOMEN: Obese. EXTREMITIES: No extremity wound. Examination of the patient's back shows a small 1.5 cm superficial stage III pressure ulcer over the distal sacrococcygeal area. There is another small 1/2 cm superficial stage III pressure ulcer of the medial left buttock. Some stool in the area was noted. Barrier cream was ordered for twice daily. IMPRESSION: 1. Sacral stage III pressure ulcer and left gluteal stage III pressure ulcer. Barrier cream ordered. 2. End-stage renal disease, on hemodialysis. 3. Leukocytosis with line sepsis. General Surgery consulted for possible line change. 4. Immobility. 5. Status post cerebrovascular accident. [facility] [address] [place] [address] CONSULTATION Name: BRAD CASIANO Room #: 358-P [facility] IN M.R.#: [id number] Admission: 01/26/21 Attend Phys: José Miguel Hernandez MD Discharge: Date of : 39 Report #: [id number] 6. Severe protein-calorie malnutrition. 7. Coronary artery disease. 8. Diabetes mellitus 2 with skin ulcer. PLAN: Wound care plan will be barrier cream application to the sacral-gluteal pressure ulcers twice daily, repositioning. Wound Care Team will follow. <ELECTRONICALLY SIGNED> By: Eddie Gaston MD 01/28/21 1625 0958 1009 Eddie Gaston MD /nt
[2021-01-28 17:06] VITALS: BP 126/73
[2021-01-28 18:57] VITALS: BP 129/59
[2021-01-29 03:58] VITALS: BP 129/54
[2021-01-29 06:08] VITALS: BP 144/62
--- NOTE | 2021-01-29 08:29 | NUR ---
PT PROGRESSING TOWARDS D/C GOALS. VSS AFEBRILE. PT NPO AFTER MN. PT WAITING FOR IR TO PLACE TEMPORARY DIALYSIS CATHETER TODAY. NO C/O PAIN. NO S/S PAIN. PT RESTING WATCHING TV. NO S/S BLEEDING NOTED TONIGHT. DRESSING TO RIGHT CHEST REMAINS C/D/I. ZGAR DTO BUTTOCKS.
--- NOTE | 2021-01-29 13:09 | 2DMMODE ---
[facility] [place] [address] 2 D/M-MODE ECHOCARDIOGRAM Name: BRAD CASIANO Room #: 358-P ADM IN M.R.#: [id number] Admission: 01/26/21 Attend Phys: José Miguel Hernandez MD Discharge: Date of : 39 Report #: [id number] THIS REPORT FOR: cc: Inocencio Mesa MD, Srinath MD Lundgren,Ayush Rosales MD [facility] ~ APPROVED REPORT Study performed: 01/29/2021 11:00:50 EXAM: Comprehensive 2D, Doppler, and color-flow Echocardiogram Patient Location: Bedside Room #: 358 Status: routine BSA: 1.69 HR: 67 bpm BP: 144/62 mmHg Rhythm: NSR Other Information Study Quality: Good Indications Diabetes CAD Hypertension/HDD Bacteremia 2D Dimensions RVDd: 29.89 mm IVSd: 13.27 (7-11mm) LVOT Diam: 20.51 (18-24mm) LVDd: 36.70 mm PWd: 12.84 (7-11mm) Ascending Ao: 36.51 (22-36mm) LVDs: 30.67 (25-40mm) Left Atrium: 39.83 (27-40mm) Aortic Root: 32.39 mm IVC: 9.00 mm Volumes Left Atrial Volume (Systole) Single Plane 4CH: 44.50 mL Single Plane 2CH: 43.84 mL LA ESV Index: 30.00 mL/m2 Aortic Valve [facility] [address] [place] [address] 2 D/M-MODE ECHOCARDIOGRAM Name: BRAD CASIANO Room #: 358-P ADM IN M.R.#: [id number] Admission: 01/26/21 Attend Phys: José iMguel Hernandez MD Discharge: Date of : 39 Report #: [id number] AoV Peak Pj.: 1.18 m/s AO Peak Gr.: 5.52 mmHg LVOT Max P.84 mmHg LVOT Max V: 0.84 m/s LILIAN Vmax: 2.37 cm2 Mitral Valve E/A Ratio: 0.6 MV Decel. Time: 460.67 ms MV E Max Pj.: 0.63 m/s MV A Pj.: 1.11 m/s MV PHT: 133.59 ms IVRT: 143.02 ms Pulmonary Valve PV Peak Pj.: 1.18 m/s PV Peak Gr.: 5.52 mmHg Pulmonary Vein P Vein S: 0.34 m/s P Vein A: 0.25 m/s P Vein D: 0.24 m/s P Vein A Dur.: 120.0 msec P Vein S/D Ratio: 1.42 Left Ventricle The left ventricle is normal size. There is global hypokinesis of the left ventricle. Mild concentric left ventricular hypertrophy. Left ventricular systolic function is mildly decreased. LVEF 45%. Mild diastolic dysfunction Right Ventricle The right ventricle is normal size. The right ventricular systolic function is normal. Atria The left atrium size is normal. The right atrium size is normal. Aortic Valve The aortic valve is trileaflet, mildly sclerotic. No aortic regurgitation is present. There is no aortic valvular stenosis. Mitral Valve The mitral valve is normal in structure. Trace mitral regurgitation. No evidence of mitral valve stenosis. Tricuspid Valve The tricuspid valve is normal in structure. There is no tricuspid [facility] [address] [place] [address] 2 D/M-MODE ECHOCARDIOGRAM Name: BRAD CASIANO Room #: 358-P [facility] IN M.R.#: [id number] Admission: 01/26/21 Attend Phys: José Miguel Hernandez MD Discharge: Date of : 39 Report #: [id number] valve regurgitation noted. Pulmonic Valve The pulmonary valve is normal in structure. There is no pulmonic valvular regurgitation. Great Vessels The aortic root is normal in size. IVC is normal in size and collapses >50% with inspiration. Pericardium There is no pericardial effusion. <Conclusion> Left ventricular systolic function is mildly decreased. There is global hypokinesis of the left ventricle. LVEF 45%. Mild diastolic dysfunction Mild concentric left ventricular hypertrophy. The aortic valve is trileaflet, mildly sclerotic. No aortic regurgitation or stenosis The mitral valve is normal in structure. Trace mitral regurgitation. Pulmonary artery pressure could not be reliably ascertained There is no pericardial effusion. <ELECTRONICALLY SIGNED> By: Ayush Dumont MD, FACC 01/29/21 1308 07 07 Ayush Dumont MD, FACC /INF
--- NOTE | 2021-01-29 16:07 | NUR ---
INITIAL ASSESSMENT: Received consult. DIANA reviewed chart and spoke with nursing and attending physician. Pt was admitted from [facility] due to sepsis. Pt to have dialysis catheter replaced in IR today. Pt is on IV abx. Pt is chronic dialysis pt and goes to the onsite [facility] at [facility]. Pt currently off the unit. Pt will have dialysis later today. DIANA left voice message for pt's son, Zain, to provide update and discuss discharge plan. DIANA faxed clinical info to [facility] for review. PT/OT evals completed. [facility] will need to obtain insurance auth if they want to use pt's skilled benefit when she returns. DIANA is following to assist as needed with discharge planning.
[2021-01-29 16:12] VITALS: BP 170/96
--- NOTE | 2021-01-29 17:51 | NUR ---
Patient has been alert to self this shift. Patient speaks very little. Patient is on room air and her lungs are clear. Patient is med- surge/ tele and has been running sinus rhythm in the 60's this shift. Patient had a dialysis cath placed on the left side of her neck. This RN makes note that no excess bleeding is present. Patient doenst report any pain at this time. Patient has been incontinet of urine one time this shift. Patient's last BM is was on 01/27/21. Patient has been turned as ordered. Patient is on isolation precautions for MRSA. Patient has an IV on her right forearm that is saline locked. Patient will continue to be monitored.
[2021-01-29 19:25] VITALS: BP 146/98
[2021-01-30 04:19] VITALS: BP 144/71
[2021-01-30 08:06] VITALS: BP 156/79
--- NOTE | 2021-01-30 08:25 | NUR ---
PT PROGRESSING TOWARDS D/C GOALS. VSS AFEBRILE. SATS WNL ON RA. ACCU CHECK LAST NIGHT WAS 98. RESUMED RENAL DIET ORDERED. SNACK GIVEN AND APPLE JUICE. PT ATE AND DRANK 100%. NO S/S BLEEDING NOTED TONIGHT. NO CHANGES IN ASSESSMENT. MOISTURE BARRIER TO SKIN BREAKDOWN.
--- NOTE | 2021-01-30 13:43 | NUR ---
DIANA reviewed chart and spoke with nursing and attending physician. Pt had temporary dialysis catheter placed yesterday. Pt is on IV abx. Pt will continue to dialyze through her temporary dialysis catheter until she clears her bacteremia, then tunneled dialysis catheter will be placed. DIANA spoke with pt's son, Zain, via phone. Introduced role of DIANA. Provided updated to Zain, who confirms plan is for pt to return to [facility] when medically stable. DIANA is following to assist as needed with discharge planning.
--- NOTE | 2021-01-30 15:39 | NUR ---
PATIENT IS ALERT AND ORIENTED X2 THIS SHIFT (SELF AND MONTH). SHE IS ON ROOM AIR. PATIENT IS MS/ TELE AND HSA BEEN RUNNING SINUS RHYTHM THIS SHIFT. PATIENT IS INCONTINENT OF BOTH BOWEL AND BLADDER THIS SHIFT. PATIENT HAS BEEN IN BED ALL SHIFT. SHE HAS BEEN TURNED Q2 HOURS AND REQUESTED. PATIENTS DIALYSIS CATH ON THE LEFT SIDE OF HER NECK SHOWS NO SIGNS OR SYMPTOMS OF BLEEDING OR SWELLING. PATIENT REPORTS NO PAIN AT THE SITE. PATIENT IS ON MRSA PRECAUTIONS. PATIENT HAS AN IV IN HER RIGHT FOREARM THAT IS SALINE LOCKED AND PATIENT. PATIENT WILL CONTINUE TO BE MONITORED.
[2021-01-30 15:45] VITALS: BP 144/72
[2021-01-30 19:16] VITALS: BP 142/66
--- NOTE | 2021-01-31 00:28 | HC ---
[facility] [place] [address] CONSULTATION Name: BRAD CASIANO Room #: 358-P ADM IN M.R.#: [id number] Admission: 01/26/21 Attend Phys: José Miguel Hernandez MD Discharge: Date of : 39 Report #: [id number] THIS REPORT FOR: cc: Inocencio Mesa MD, Srinath MD Geha,Amos Santana MD ~ DATE OF SERVICE: 01/27/2021 INFECTIOUS DISEASE CONSULTATION REASON FOR CONSULTATION: I was asked to evaluate concerning Gram-positive cocci bacteremia. HISTORY OF PRESENT ILLNESS: The patient is an 80-year-old with previous stroke and aphasia, underlying diabetes, coronary artery disease, end-stage renal disease who had a tunneled dialysis catheter in place as she had a failed fistula, presents now with lethargy and purulent drainage from her tunneled catheter. Blood cultures have grown Staph aureus, sensitivities pending. She underwent dialysis today, was given vancomycin and Zosyn. Catheter was removed after dialysis. Nephrology is following and assisting in her care. REVIEW OF SYSTEMS: There has been no cough or sputum production. No trauma. She has had altered mental status for approximately 2 days. She has not been able to eat. She usually participates in her care and is unable to do this. A 14-point review of system was otherwise negative. ALLERGIES: PROCHLORPERAZINE. MEDICATIONS: As noted on her MAR, which were reviewed. PAST MEDICAL HISTORY: Hypertension, hyperlipidemia, end-stage renal disease, stroke with aphasia, diabetes, non-STEMI. Previous upper extremity fistula, which has failed. FAMILY HISTORY: No report of tuberculosis. SOCIAL HISTORY: Nonsmoker, no significant alcohol intake. PHYSICAL EXAMINATION: GENERAL: Afebrile and hemodynamically stable. She was awake, but noncommunicative. SKIN: Without rash or decubitus. No palpable adenopathy. Stage II pelvic decubiti. LUNGS: Clear. HEART: Regular, without murmur. ABDOMEN: Soft and nontender. [facility] [address] [place] [address] CONSULTATION Name: BRAD CASIANO Room #: [address] [place] [address] IN M.R.#: [id number] Admission: 01/26/21 Attend Phys: José Miguel Hernandez MD Discharge: Date of : 39 Report #: [id number] EXTREMITIES: With arthritis, most notable both knees with small effusion. More contractured on the left. Was able to move all extremities. LABORATORY DATA: Reviewed. MICROBIOLOGY: Reviewed. IMAGING STUDIES: CT of the head reviewed. X-ray of the pelvis reviewed. Chest x-ray reviewed. CT of the abdomen and pelvis reviewed. IMPRESSION: 1. Staphylococcus aureus bacteremia, source tunneled dialysis catheter. 2. End-stage renal disease. 3. Previous stroke with aphasia. 4. Elevated transaminase. 5. Pressure wounds to the pelvis. 6. Diabetes. 7. Hypertension. 8. Coronary artery disease. RECOMMENDATION: We will continue vancomycin and repeat blood cultures. Hold off on dialysis for next 48 hours and replace with a temporary dialysis catheter until we establish clearance of her blood stream. Check echocardiogram. <ELECTRONICALLY SIGNED> By: Amos Lema MD 01/31/21 0028 180 40 Amos Lema MD /nt
[2021-01-31 05:15] VITALS: BP 149/76
[2021-01-31 07:16] VITALS: BP 157/72
--- NOTE | 2021-01-31 07:31 | NUR ---
PT WAS VERY SLEEPY OVERNIGHT. EASILY TO AROUSE. VSS. ISOLATION FOR MRSA. PT WILL HAVE DIALYSIS TODAY. ATTEMPTING Q2 TURNS. HOURLY ROUNDING.
[2021-01-31 10:11] LABS: CALCIUM 8.5 mg/dL (8.5-10.1); POTASSIUM 4.3 mmol/L (3.5-5.1)
[2021-01-31 10:22] LABS: HEMATOCRIT 33.1 % (37.0-47.0); HEMOGLOBIN 10.4 gm/dL (12.0-15.0); MCH 23.6 pg (26.0-34.0); MCHC 31.3 g/dL (28.0-37.0); MCV 75.3 fL (80.0-100.0); PLATELET COUNT 223 thou/uL (150-400); RBC 4.39 mil/uL (4.20-5.00); RDW 20.1 % (10.5-14.5); WBC 12.8 thou/uL (4.0-11.0)
[2021-01-31 12:19] LABS: ABSOLUTE NEUTROPHILS 9.7 thou/uL (1.4-8.2); ANISOCYTOSIS 1+; PLATELET ESTIMATE NORMAL
--- NOTE | 2021-01-31 14:56 | NUR ---
DIANA reviewed chart and spoke with nursing and attending physician. Pt to have tunneled dialysis catheter placed prior to discharge. Pt will return to [facility] when medically stable. DIANA updated Denisha, admissions liaison for [facility]. DIANA is follwoing to assist as needed with discharge planning.
[2021-01-31 16:28] VITALS: BP 123/62
--- NOTE | 2021-01-31 18:08 | NUR ---
PATIENT ALERT. HAD HD TODAY. POOR APPETITE. VSS. WILL KEEP MONITOR.
[2021-01-31 18:51] VITALS: BP 137/62
[2021-02-01 03:04] VITALS: BP 147/74
[2021-02-01 10:31] VITALS: BP 150/76
[2021-02-01 13:30] VITALS: BP 118/52
--- NOTE | 2021-02-01 14:19 | NUR ---
ASSUMED PATIENT CARE AT 0700. A/O X2. FOLLOW SIMPLE COMMAND. ASSISTED WITH MEALS. TRANSFER TO [facility] AT 1400. SLOWLY TOWARDS POC GOALS,
--- NOTE | 2021-02-01 15:02 | NUR ---
DIANA reviewed chart and spoke with nursing and attending physician. Pt is progressing towards goals for discharge. Pt to have tunneled dialysis catheter placed tomorrow and then will likely be ready to discharge back to [facility] after dialysis. DIANA faxed clinical/therapy updates to [facility] for review. DIANA updated Norma Denny, admissions liaison. Requested facility to submit for authorization if they are wanting to skill pt upon her return. DIANA spoke with pt's son, Zain, via phone to provide update and notify of anticipated discharge for tomorrow. Zain is aware and agreeable with discharge plan. Pt was transferred to earlier this afternoon. DIANA provided pt's new room number and contact info for nurses station to pt's son. DIANA is following to assist as needed with discharge planning.
--- NOTE | 2021-02-01 15:13 | NUR ---
PT WAS TRANSFERED FROM THIS AFTERNOON. PLAN IS FOR PT TO HAVE TUNNELED DIALYSIS CATHETER PLACED TOMORROW AND MAY THEN BE ABLE TO DISCHARGE BACK TO [facility]. CLINICAL UPDATES WERE SENT TO FACILITY AND IT WAS ASKED THAT THE SUBMIT FOR INSURANCE AUTH. CM FOLLOWING REGARDING DC PLANNING.
[2021-02-01 16:35] VITALS: BP 131/78
--- NOTE | 2021-02-01 16:39 | NUR ---
RN ASSUMED PT'S CARE AT 1530PM, PT CAME FROM [facility] , PT IS A&OX2 ( PERSON AND PLACE), PT CAN ANSWER SOME QUESTIONS, AND PT CAN FOLLOW COMMANDS, PT NEEDS HELP ADL AND MEALS, RN HAS CALLED PT'S SON TO UPDATE PT'S IMFORMATION , PT IS GOING TO HAVE DIALYSIS TUNNELED CATHETER PLACEMENT TOMORROW.
[2021-02-01 19:27] VITALS: BP 145/78
[2021-02-02 00:17] VITALS: BP 148/73
--- NOTE | 2021-02-02 04:58 | NUR ---
Pt. rested quietly during the night when checked on during frequent rounds. She offers no complaints. Bed alarm is on.
[2021-02-02 05:20] VITALS: BP 148/78
[2021-02-02 05:57] LABS: ABSOLUTE NEUTROPHILS 9.5 thou/uL (1.4-8.2); BASOPHILS 0.4 % (0.0-2.0); EOSINOPHILS 1.2 % (0.0-3.0); HEMATOCRIT 30.6 % (37.0-47.0); HEMOGLOBIN 9.6 gm/dL (12.0-15.0); LYMPHOCYTES 11.3 % (24.0-44.0); MCH 23.3 pg (26.0-34.0); MCHC 31.3 g/dL (28.0-37.0); MCV 74.7 fL (80.0-100.0); PLATELET COUNT 261 thou/uL (150-400); POLYS 78.1 % (36.0-66.0); RDW 19.7 % (10.5-14.5); WBC 12.2 thou/uL (4.0-11.0)
[2021-02-02 06:16] LABS: CALCIUM 9.2 mg/dL (8.5-10.1); CREATININE 6.6 mg/dL (0.6-1.0); POTASSIUM 3.9 mmol/L (3.5-5.1); TOTAL BILIRUBIN 0.4 mg/dL (0.2-1.0); TOTAL PROTEIN 6.9 g/dL (6.4-8.2)
[2021-02-02 06:22] LABS: APTT 29.8 Seconds (24.5-32.8); PROTIME 10.9 Seconds (10.5-12.1)
[2021-02-02 07:45] VITALS: BP 133/73
[2021-02-02 10:18] VITALS: BP 133/73
--- NOTE | 2021-02-02 12:03 | NUR ---
PT D/C THIS AFTERNOON, NOW ON DIALYSIS. NO OT
[2021-02-02] MEDS ORDERED: MIRALAX17 GM PO (13:40)
[2021-02-02] MEDS ORDERED: HEPARIN SO1000 UNIT/ IV PUSH (13:40)
[2021-02-02] MEDS ORDERED: VAN500AD IV (13:45)
--- NOTE | 2021-02-02 14:14 | NUR ---
PT HAD TUMMELED DIALYSIS CATHETER PLACED THIS AM. PT HAD HD THIS AFTERNOON. CARE TEAM INDICATED THAT PT IS MEDICALLY STABLE TO DC BACK TO [facility] THIS DAY. CM FAXED ORDERS. CHART COPY MADE. NURSE GIVEN NUMBER FOR REPORT. [id number]. CM CALLED AND NOTIFIED PT'S SON NED HE IS AGREEABLE. CM FAXED ORDERS TO [facility]. NO OTHER CM INTERVENTION INDICATED. CASE CLOSED.
== END 2021-02-02 16:15 | DRG 314 ==
LOC: ER 07:06 → 4W 14:25 → EROBS 14:25 → 3W 14:25 → 4W 02-01 13:35
PROVIDERS: Emergency Medicine; Hospitalist; Nurse Practitioner; Radiology Diagnostic Radiology; ADMIT Hospitalist; ATTEND Hospitalist
PROC: 5A1D70Z Performance of Urinary Filtration, Intermittent, Less than 6 Hours Per Day (ICD-10-PCS; principal; 2021-01-27)
PROC: 02PYX3Z Removal of Infusion Device from Great Vessel, External Approach (ICD-10-PCS; principal; 2021-01-27)
PROC: 0JPT3XZ Removal of Tunneled Vascular Access Device from Trunk Subcutaneous Tissue and Fascia, Percutaneous Approach (ICD-10-PCS; principal; 2021-01-27)
PROC: B5181ZA Fluoroscopy of Superior Vena Cava using Low Osmolar Contrast, Guidance (ICD-10-PCS; 2021-01-29)
PROC: 02HV33Z Insertion of Infusion Device into Superior Vena Cava, Percutaneous Approach (ICD-10-PCS; 2021-01-29)
PROC: B548ZZA Ultrasonography of Superior Vena Cava, Guidance (ICD-10-PCS; 2021-01-29)
PROC: 0JH63XZ Insertion of Tunneled Vascular Access Device into Chest Subcutaneous Tissue and Fascia, Percutaneous Approach (ICD-10-PCS; 2021-02-02)
PROC: B548ZZA Ultrasonography of Superior Vena Cava, Guidance (ICD-10-PCS; 2021-02-02)
PROC: B5181ZA Fluoroscopy of Superior Vena Cava using Low Osmolar Contrast, Guidance (ICD-10-PCS; 2021-02-02)
PROC: 02HV33Z Insertion of Infusion Device into Superior Vena Cava, Percutaneous Approach (ICD-10-PCS; 2021-02-02)
PROC: 5A1D70Z Performance of Urinary Filtration, Intermittent, Less than 6 Hours Per Day (ICD-10-PCS; 2021-02-02)
DX: T80.211A Bloodstream infection due to central venous catheter, initial encounter (principal); A41.02 Sepsis due to Methicillin resistant Staphylococcus aureus; L89.323 Pressure ulcer of left buttock, stage 3; L89.153 Pressure ulcer of sacral region, stage 3; N18.6 End stage renal disease; E43 Unspecified severe protein-calorie malnutrition; G93.40 Encephalopathy, unspecified; I12.0 Hypertensive chronic kidney disease with stage 5 chronic kidney disease or end stage renal disease; R74.01 Elevation of levels of liver transaminase levels; Z20.822 Contact with and (suspected) exposure to COVID-19; E11.622 Type 2 diabetes mellitus with other skin ulcer; R53.81 Other malaise; E78.5 Hyperlipidemia, unspecified; E11.22 Type 2 diabetes mellitus with diabetic chronic kidney disease; I25.10 Atherosclerotic heart disease of native coronary artery without angina pectoris; Y83.8 Other surgical procedures as the cause of abnormal reaction of the patient, or of later complication, without mention of misadventure at the time of the procedure; Y92.89 Other specified places as the place of occurrence of the external cause; Z99.2 Dependence on renal dialysis; I69.320 Aphasia following cerebral infarction; I25.2 Old myocardial infarction; Z88.8 Allergy status to other drugs, medicaments and biological substances
CPT/HCPCS: 10045; 10879; 32100